=== PATIENT | female | born 1940 | race Caucasian/White ===

== ENCOUNTER 2016-11-25 15:32 | Inpatient (IN) | payer MEDICARE ==
[~2016-11-25] VITALS: Ht 170.2 cm; Wt 92.1 kg
[2016-11-25] MEDS ORDERED: NITROGLYCERIN SINGLE TAB 0.4 MG SL ONE (15:55)
[2016-11-25] MEDS ORDERED: ASPIRIN 81 MG TABLET CHEW ONE (15:55)
[2016-11-25] MEDS ORDERED: SODIUM CHLORIDE FLUSH 10ML SYR IVF ONE (16:00)
[2016-11-25] MEDS ORDERED: ASPIRIN 81 MG TABLET CHEW PO ONE (16:00)
[2016-11-25 16:39] LABS: ASPARTATE AMINO TRANSFERASE 13 U/L (15-37); BLOOD UREA NITROGEN 27 mg/dL (7-18)
[2016-11-25 16:44] LABS: IS PT STATUS REG ER OR PRE ER? YES
[2016-11-25] MEDS ORDERED: NITROGLYCERIN SINGLE TAB 0.4 MG SL PRN (17:00)
[2016-11-25] MEDS ORDERED: ROSU5TAB PO (17:12)
[2016-11-25] MEDS ORDERED: HYDR-3144 PO (17:12)
[2016-11-25] MEDS ORDERED: LEVO112T2 PO (17:12)
[2016-11-25] MEDS ORDERED: NITROGLYCERIN OINT 2%, 1GM TP ONE (18:00)
[2016-11-25] MEDS ORDERED: ONDANSETRON ODT 4 MG PO PRN (18:00)
[2016-11-25] MEDS ORDERED: ZOLPIDEM 5MG TABLET PO PRN (18:00)
[2016-11-25] MEDS ORDERED: NITROGLYCERIN 0.4 MG BOTTLE (25 TABS) SL PRN (18:00)
[2016-11-25] MEDS ORDERED: DOCUSATE 100 MG CAPSULE PO PRN (18:00)
[2016-11-25] MEDS ORDERED: ENALAPRILAT 1.25 MG/ML, 2ML IVPush PRN (18:00)
[2016-11-25] MEDS ORDERED: ACETAMINOPHEN 325 MG TABLET PO PRN (18:00)
[2016-11-25 18:38] LABS: IS PT STATUS REG ER OR PRE ER? NO
[2016-11-25] MEDS: HYDROcodone/APAP 10/325 MG TABLET PO SCH ×2 (21:00→22:09)
[2016-11-25] MEDS: ENOXAPARIN 40 MG/0.4 ML SQ SCH (22:09)
[2016-11-26 00:01] LABS: IS PT STATUS REG ER OR PRE ER? NO
[2016-11-26 02:34] VITALS: BP 100/63
[2016-11-26] MEDS: LEVOTHYROXINE 112 MCG TABLET PO SCH (06:12)
[2016-11-26] MEDS: ASPIRIN 325 MG TABLET EC PO SCH (06:12)
[2016-11-26 07:19] VITALS: BP 107/69
[2016-11-26] MEDS ORDERED: REGADENOSON 0.4 MG/5 ML SYRINGE ONE (08:07)
[2016-11-26] MEDS: PANTOPROZOLE 40MG TABLET PO SCH (08:14)
[2016-11-26] MEDS: HYDROcodone/APAP 10/325 MG TABLET PO SCH ×3 (08:14→21:30)
[2016-11-26] MEDS ORDERED: LORazepam 2 MG/ML, 1ML IVPush ONE (13:00)
[2016-11-26] MEDS ORDERED: OMNIPAQUE 350 MG/ML, 100ML BOTTLE ONE (14:05)
[2016-11-26 15:03] VITALS: BP 115/72
[2016-11-26] MEDS ORDERED: KETOROLAC 30 MG/1 ML IVPush PRN (15:30)
[2016-11-26] MEDS: ENOXAPARIN 40 MG/0.4 ML SQ SCH (17:54)
[2016-11-26 20:00] VITALS: BP 111/64
[2016-11-27 02:15] VITALS: BP 99/63
[2016-11-27] MEDS: LEVOTHYROXINE 112 MCG TABLET PO SCH (05:38)
[2016-11-27] MEDS: ASPIRIN 325 MG TABLET EC PO SCH (05:38)
[2016-11-27 06:33] VITALS: BP 120/76
[2016-11-27] MEDS: HYDROcodone/APAP 10/325 MG TABLET PO SCH ×2 (08:40→08:41)
[2016-11-27] MEDS: PANTOPROZOLE 40MG TABLET PO SCH (08:40)
[2016-11-27] MEDS ORDERED: ASPI-650 PO (10:36)
[2016-11-27] MEDS ORDERED: ISOS30TA8 PO (10:46)
[2016-11-27] MEDS ORDERED: ISOSORBIDE MONONITRATE ER 30 MG TABLET PO SCH (13:00)
[2016-11-27 13:41] VITALS: BP 106/56
== END 2016-11-27 15:00 | disposition home or self-care (01) | DRG 303 ==
LOC: ED 16:49 → EDIP 17:36 → 5SO 20:44
PROVIDERS: ADMIT Hospitalist; ATTEND Internal Medicine
DX: I25.10 Atherosclerotic heart disease of native coronary artery without angina pectoris (principal); E03.9 Hypothyroidism, unspecified; E78.00 Pure hypercholesterolemia, unspecified; I35.8 Other nonrheumatic aortic valve disorders; I10 Essential (primary) hypertension; Z96.653 Presence of artificial knee joint, bilateral; G89.29 Other chronic pain; M25.569 Pain in unspecified knee; I25.2 Old myocardial infarction; Z79.82 Long term (current) use of aspirin; Z95.5 Presence of coronary angioplasty implant and graft
CPT/HCPCS: 36415; 71010; 71275; 78452; 80053; 80061; 83690; 83880; 84443; 84484; 85025; 85379; 85610; 85730; 93005; 93017; 93306; J1650; J1885; J2785; Q9967; A9502; C9898; J2060

== ENCOUNTER → 2019-10-07 | Outpatient (CLI) | payer MEDICARE ==
[~2019-10-07] MED LIST: ASPI-650 PO; HYDR-3245 PO; ISOS30TA8 PO; LEVO112T2 PO; REGADENOSON 0.4 MG/5 ML SYRINGE ONE; ROSU5TAB PO
== END | disposition home or self-care (01) ==
LOC: CFH 07:46
PROVIDERS: ATTEND Internal Medicine Cardiovascular Disease
DX: I34.0 Nonrheumatic mitral (valve) insufficiency (principal); I21.29 ST elevation (STEMI) myocardial infarction involving other sites; I25.10 Atherosclerotic heart disease of native coronary artery without angina pectoris
CPT/HCPCS: 78452; 93017; 93306; A9502; J2785